=== PATIENT | female | born 1955 | race African-American/Black ===

== ENCOUNTER 2019-01-21 15:22 | Emergency (ER) | payer OTHER, MEDICAID ==
[~2019-01-21] VITALS: Ht 170.2 cm; Wt 136.1 kg
[2019-01-21 17:44] VITALS: BP 161/82
[2019-01-21] MEDS ORDERED: HYDR-3164 PO (18:28)
[2019-01-21] MEDS ORDERED: CEPH-264 PO (18:28)
--- NOTE | 2019-01-21 18:28 | PHYS DOC ---
Past Medical History Past Medical History: Diabetes-Type II, Hypertension Past Surgical History: Cholecystectomy, , Tonsillectomy Alcohol Use: None Drug Use: None Adult General Chief Complaint Chief Complaint: LACERATION/AVULSION HPI HPI Patient is a 63 year old female who presents with a laceration to her right thumb that occurred when she was slicing apples. She states that she needs a tetanus booster. She denies any other injury. Review of Systems Review of Systems Constitutional: Denies fever or chills [] Respiratory: Denies cough or shortness of breath [] Cardiovascular: No additional information not addressed in HPI [] GI: Denies abdominal pain, nausea, vomiting, bloody stools or diarrhea [] : Denies dysuria or hematuria [] Musculoskeletal: Denies back pain or joint pain [] Integument: See HPI Neurologic: Denies headache, focal weakness or sensory changes [] Endocrine: Denies polyuria or polydipsia [] All other systems were reviewed and found to be within normal limits, except as documented in this note. Current Medications Current Medications Current Medications Medications (Trade) Dose Ordered Sig/Alonzo Start Time Stop Time Status Last Admin Dose Admin Acetaminophen/ Hydrocodone Bitart (Lortab 5/325) 1 tab 1X ONCE 01/21/19 18:30 01/21/19 18:31 DC 01/21/19 18:33 1 TAB Diphtheria/ Tetanus/Acell Pertussis (Boostrix) 0.5 ml ONCE ONCE 01/21/19 18:30 01/21/19 18:31 DC 01/21/19 18:32 0.5 ML Allergies Allergies Allergies Coded Allergies Type Severity Reaction Last Updated Verified sulfamethoxazole Allergy Intermediate 01/21/19 Yes trimethoprim Allergy Intermediate 01/21/19 Yes Physical Exam Physical Exam Constitutional: Well developed, well nourished, no acute distress, non-toxic appearance. [] Cardiovascular:Heart rate regular rhythm, no murmur [] Lungs & Thorax: Bilateral breath sounds clear to auscultation [] Abdomen: Bowel sounds normal, soft, no tenderness, no masses, no pulsatile masses. [] Skin: 1 cm laceration to the base of the right thumb that is more of an avulsion, it is shallow with bleeding controlled. Back: No tenderness, no CVA tenderness. [] Extremities: No tenderness, no cyanosis, no clubbing, ROM intact, no edema. [] Neurologic: Alert and oriented X 3, normal motor function, normal sensory function, no focal deficits noted. [] Psychologic: Affect normal, judgement normal, mood normal. [] Current Patient Data Vital Signs EKG EKG [] Radiology/Procedures Radiology/Procedures [] Course & Med Decision Making Course & Med Decision Making Pertinent Labs and Imaging studies reviewed. (See chart for details) []The wound was cleaned and reinforced with steristrips. The patient was given Boostrix in the ED. Dragon Disclaimer Dragon Disclaimer This electronic medical record was generated, in whole or in part, using a voice recognition dictation system. Departure Departure Impression: Primary Impression: Laceration Additional Impression: Need for tetanus booster Disposition: HOME, SELF-CARE Condition: STABLE Referrals: ALFONSO LYNN MD (PCP) Patient Instructions: Fingertip Laceration, Sterile Tape Wound Closure Additional Instructions: Take the medication for pain as directed. Do not drive or operate heavy machinery while taking this medication. Follow-up with your primary care provider in one week if not improving. The Steri-Strips and glue will come off on its own over the next few days. Scripts Cephalexin (KEFLEX) 500 Mg Capsule 1 CAP PO TID for laceration, #30 CAP Prov: NONA PENALOZA APRN 01/21/19 Hydrocodone/Apap 5-325 (NORCO 5-325 TABLET) 1 Each Tablet 1 TAB PO PRN Q6HRS PRN for PAIN, #14 TAB 0 Refills Prov: NONA PENALOZA APRN 01/21/19 Problem Qualifiers NONA PENALOZA APRN Jan 21, 2019 18:28
[2019-01-21] MEDS ORDERED: HYDROcodone/APAP 5/325MG 1 TAB TABLET PO ONE (18:30)
[2019-01-21] MEDS ORDERED: DIPHTH,PERTUSS(ACELL),TET TOX 0.5 ML DISP.SYRIN. VAX IM ONE (18:30)
== END 2019-01-21 18:35 | disposition home or self-care (01) ==
LOC: ER 15:22
DX: S61.111A Laceration without foreign body of right thumb with damage to nail, initial encounter (principal); E11.9 Type 2 diabetes mellitus without complications; I10 Essential (primary) hypertension; Z90.49 Acquired absence of other specified parts of digestive tract; Z98.890 Other specified postprocedural states; Z90.89 Acquired absence of other organs; Z88.2 Allergy status to sulfonamides; Z88.1 Allergy status to other antibiotic agents; W26.8XXA Contact with other sharp object(s), not elsewhere classified, initial encounter; Y93.89 Activity, other specified; Y92.89 Other specified places as the place of occurrence of the external cause; Y99.8 Other external cause status
CPT/HCPCS: 90471; 90715; 99283

== ENCOUNTER → 2019-09-07 | Outpatient (CLI) | payer MEDICARE, MEDICAID ==
[~2019-09-07] MED LIST: CEPH-264 PO; GADOTERATE 7.5 MMOL/15ML VIAL. IVP ONE; HYDR-3164 PO
[2019-09-07 13:04] LABS: BASO # 0.1 x10^3/uL (0.0-0.2); BASO % 1 % (0-3); EOS # 0.2 x10^3/uL (0.0-0.7); EOS % 2 % (0-3); HEMATOCRIT 43.1 % (36.0-47.0); HEMOGLOBIN 14.3 g/dL (12.0-15.5); LYMPH # 3.4 x10^3/uL (1.0-4.8); LYMPH % 42 % (24-48); MEAN CORPUSCULAR HEMOGLOBIN 29 pg (25-35); MEAN CORPUSCULAR HGB CONC 33 g/dL (31-37); MEAN CORPUSCULAR VOLUME 87 fL (79-100); MONO # 0.4 x10^3/uL (0.0-1.1); MONO % 6 % (0-9); NEUT # 3.9 x10^3/uL (1.8-7.7); NEUT % 49 % (31-73); PLATELET COUNT 339 x10^3/uL (140-400); RED BLOOD COUNT 4.96 x10^6/uL (3.50-5.40); RED CELL DISTRIBUTION WIDTH 14.5 % (11.5-14.5)
[2019-09-07 13:24] LABS: ALBUMIN 3.9 g/dL (3.4-5.0); ALBUMIN/GLOBULIN RATIO 0.8 (1.0-1.7); CREATININE 1.2 mg/dL (0.6-1.0); GFR 55.3; POTASSIUM 4.2 mmol/L (3.5-5.1); TOTAL BILIRUBIN 0.4 mg/dL (0.2-1.0); TOTAL PROTEIN 8.7 g/dL (6.4-8.2)
[2019-09-07 13:43] LABS: FREE T4 1.14 ng/dL (0.76-1.46); THYROID STIM HORMONE (TSH) 2.101 uIU/mL (0.358-3.74)
--- NOTE | 2019-09-07 15:37 | RAD ---
LUMBAR SPINE WO/W CONTRAST History: Low back pain. Left leg radiculopathy. Technique: Multiplanar, multi sequential MR imaging was performed of the lumbar spine with and without contrast. Contrast: 30 mL Dotarem. Comparison: None Findings: Normal vertebral body height and alignment. No fracture. Conus terminates at the normal location. No evidence of nerve root clumping. No pathologic enhancement. L1-L2: No canal or neuroforaminal narrowing. L2-L3: No canal or neuroforaminal narrowing. Mild facet arthropathy. L3-L4: Small right foraminal annular fissure. No significant posterior disc bulge. No canal or neuroforaminal narrowing. Moderate facet arthropathy. L4-L5: Minimal posterior disc bulge. Moderate facet arthropathy. No canal or neuroforaminal narrowing. L5-S1: Moderate facet arthropathy. No canal or neuroforaminal narrowing. Poorly characterize bilateral renal lesions, likely cysts. Impression: 1. Moderate facet arthropathy. No significant canal or neuroforaminal narrowing. Electronically signed by: Petey Whittington DO (09/07/2019 3:35 PM) [facility]
--- NOTE | 2019-09-07 16:20 | RAD ---
CHEST PA LATERAL Clinical indications: Cough for 2 weeks. COMPARISON: October 06, 2018. Findings: No acute lung infiltrate or pleural effusion or pulmonary edema or lung mass or pneumothorax is seen. The heart size, pulmonary vasculature, mediastinum and both sawyer are unremarkable. The osseous structures appear intact. Impression: No acute radiographic abnormality is seen. Electronically signed by: Chance Zarate MD (09/07/2019 4:18 PM) [facility]
[2019-09-08 00:07] LABS: HEMOGLOBIN A1C 6.6 % (4.8-5.6)
[2019-09-08 01:11] LABS: CREAT RD UR 175.7 mg/dL (Not Estab.); MICRO CREAT RATIO 4.8 mg/g creat (0.0-30.0); MICROALB RD UR 8.5 ug/mL (Not Estab.)
== END | disposition home or self-care (01) ==
LOC: MRI 13:07
PROVIDERS: ATTEND Nurse Practitioner Family
DX: M46.87 Other specified inflammatory spondylopathies, lumbosacral region (principal); R05 Cough; E11.9 Type 2 diabetes mellitus without complications; M54.16 Radiculopathy, lumbar region; M48.062 Spinal stenosis, lumbar region with neurogenic claudication
CPT/HCPCS: 36415; 71046; 72158; 80053; 82043; 82570; 83036; 84439; 84443; 85025; A9575

== ENCOUNTER → 2019-09-11 | Outpatient (CLI) | payer MEDICARE, MEDICAID ==
[~2019-09-11] MED LIST changes: -GADOTERATE 7.5 MMOL/15ML VIAL. IVP ONE
--- NOTE | 2019-09-11 19:19 | RAD ---
DATE: 09/11/2019 EXAM: MAMMO CHUCK SCREENING BILATERAL HISTORY: Routine screening. COMPARISON: None. This exam is the baseline. This study was interpreted with the benefit of Computerized Aided Detection (CAD). Breast Density: SCATTERED The breast parenchyma shows scattered fibroglandular densities. Breast parenchyma level B. FINDINGS: No suspicious mass or calcification. No distortion. IMPRESSION: Unremarkable. BI-RADS CATEGORY: 1 NEGATIVE RECOMMENDED FOLLOW-UP: 12M 12 MONTH FOLLOW-UP PQRS compliance statement: Patient information was entered into a reminder system with a target due date for the next mammogram. Mammography is a sensitive method for finding small breast cancers, but it does not detect them all and is not a substitute for careful clinical examination. A negative mammogram does not negate a clinically suspicious finding and should not result in delay in biopsying a clinically suspicious abnormality. "Our facility is accredited by the [employer] Mammography Program."
== END | disposition home or self-care (01) ==
LOC: MAMMO 09:05
PROVIDERS: ATTEND Nurse Practitioner Family
DX: Z12.31 Encounter for screening mammogram for malignant neoplasm of breast (principal)
CPT/HCPCS: 77063; 77067

== ENCOUNTER → 2019-09-14 | Outpatient (CLI) | payer MEDICARE, MEDICAID ==
[~2019-09-14] MED LIST changes: +ACET500T68 PO; +ASPI81TA50 PO; +ATOR10TA60 PO; +BUPIVACAINE MPF 0.25% 10 ML VIAL. ONE; +METF10007 PO; +MONT10TA49 PO; +OLME1TAB21 PO; +PANT40TA77 PO; +VENTOLIN HFA18 GM INH; +methylPREDNISolone ACETATE 40 MG/ML VIAL. ONE
--- NOTE | 2019-09-14 19:05 | PAIN ---
DATE OF SERVICE: 09/14/2019 INITIAL CONSULTATION FOR PAIN CLINIC CHIEF COMPLAINT: Low back and left lower extremity pain. HISTORY OF PRESENT ILLNESS: This is a 63-year-old female who presents with history of pain in the low back, left lower extremity for about 7 years, worse over the past few months, worse with activity, standing, walking, changing positions, also with sitting. The patient reports her left leg will go numb with walking and sitting down and she sometimes feels a popping sensation in the left hip, which caused the pain to increase and shooting down her leg, mostly in the posterior calf. The patient reports it is constant, sharp, stabbing, throbbing, shooting, intermittent in intensity with tingling, numbness, changes during the day, worse with activity, also worse with sitting. The patient reports it can awaken her from sleep as well generally once or twice at night, it does not affect her bowel or bladder control, but does affect her ability to walk significantly. The patient has not had any formal recent physical therapy, had some in the past, also had some epidural injections in the past about 7 years ago, which were not helpful and caused migraine headaches. The patient reports she has tried meloxicam, tramadol, hydrocodone, also some toqz-mgk-[id number] pain patches, none of which have really significantly decreased the pain. The patient rates her disability rating from 0 to 10, 10 being the worst, it is a 7 with family home responsibilities, 8 with recreation and social activity, and 9 with occupation and sexual behavior, 6 with self-care and life support activities. The patient did have MRI scan of the lumbar spine showing only some moderate facet arthropathy, small right foraminal annular fissure at L3-L4 with no significant posterior disk bulge. L4-L5 shows moderate facet arthropathy with no canal or neural foraminal narrowing and also facet arthropathy at L5-S1. The patient reports significant fatigability in the left leg, pain comes with sitting as well as with standing and walking. PAST MEDICAL HISTORY: Significant for diabetes type 2, shortness of breath, sleep apnea, hypertension, hyperlipidemia, diarrhea, gastroesophageal reflux, arthritis. PREVIOUS SURGERY: Include tonsillectomy, cholecystectomy and previous . CURRENT MEDICATIONS: Include metformin, pantoprazole, daily baby aspirin, extra strength Tylenol, ibuprofen and an allergy injections that she gets weekly during spring and fall seasons. FAMILY HISTORY: Significant for high blood pressure. SOCIAL HISTORY: The patient does not smoke. Drinks alcohol about 1 glass of wine a week, does not use any illegal, illicit or recreational drugs. She is single, lives locally in [place], [place], is currently staying with her daughter who lives near the [facility] [address] REVIEW OF SYSTEMS: The patient's review of systems is positive for those items mentioned in the history of present illness. It is complete, full and well documented on the patient's chart. PHYSICAL EXAMINATION: VITAL SIGNS: The patient's blood pressure is 141/74, pulse 76, respirations 16, temperature is 97.5 degrees Fahrenheit, height is 5 feet 7 inches, weight 323 pounds. GENERAL: The patient is awake, alert, oriented, appropriate, very pleasant demeanor. HEENT: Shows normocephalic, atraumatic. Extraocular movements are intact and symmetrical. Oral cavity: Mucous membranes moist and pink. Dentition is intact. NECK: Shows anterior throat supple without palpable lymphadenopathy noted. Swallow reflex symmetrical. CHEST: Shows normal on inspection. Breath sounds clear to auscultation bilaterally. HEART: Shows S1, S2 clear. No murmurs auscultated. ABDOMEN: Soft, obese, nontender, nondistended. No palpable organomegaly is noted. No rebound or guarding demonstrated. BACK: Shows spine grossly in the midline. Normal appearing thoracic kyphosis and lumbar lordotic curvature. Lumbar paraspinous muscle shows symmetrical on inspection; with palpation shows some moderate tenderness diffusely bilaterally, but only diffusely without significant radiation. EXTREMITIES: The patient's lower extremities show deep tendon reflexes at 2+ in the patellar, 1+ tendo-calcaneus tendons. Motor exam is strong with 5/5 dorsiflexion, extension, quadriceps and hamstring flexion and symmetrical. Peripheral pulses are 1+ in posterior tibia. No peripheral edema is noted. Lower extremities are warm and dry to touch, equal in color and appearance. The patient's straight leg raise noted to be negative for reproduction of radicular symptoms bilaterally with examination of the patient's left hip shows significant tenderness over the inferior medial aspect near the ischial tuberosity with very firm musculature in this region but very tender and reproducing of some radiating pain into the posterior thigh as well as the lateral thigh with palpation in this region. Right side shows no such tenderness and no radiation of pain with palpation. Gaenslen's and Jonah's maneuvers are grossly negative bilaterally as well. SKIN: Shows warm and dry, good turgor. No edema. No sores, rashes or bruising throughout. IMPRESSION: 1. This is a 63-year-old female with approximately 7-year history of low back and left lower extremity pain. 2. MRI scan of lumbar spine as noted. 3. Diabetes type 2. 4. Arthritis. 5. Obesity. 6. Hypertension. PLAN: Options were discussed with the patient including conservative medical management, physical therapies, interventional techniques. She elected to proceed with interventional techniques. She went through modalities without significant improvement in the past. We discussed a left piriformis injection using description as well as anatomical models to describe the procedure. Risks were then discussed including, but not limited to bleeding, infection, possibility of intravascular injection sequelae, spread of local anesthetic and numbness, side effects of steroid medication, exposure to fluoroscopy and poor results regarding pain control. The patient understands and wished to proceed. The patient will return to clinic in approximately 2 weeks for followup. She was counseled on return appointment, activity level and side effects to be aware of. DIAGNOSIS: Left piriformis syndrome. PROCEDURE: Left piriformis injection using C-arm fluoroscopic guidance under sterile prep and drape using local anesthetic. MEDICATION INJECTED: Received a total of 5 mL of 0.25% bupivacaine and total of 40 mg Depo-Medrol after negative aspiration and 1.5 mL of contrast. CONDITION AT DISCHARGE: Stable. The patient tolerated procedure well, had no complications. ENRIQUE RUIZ MD DR: KAYLEY/juan alberto JOB#: [id number] / [id number] BRIANNA Sommers
== END ==
LOC: PNCL 09:58
PROVIDERS: ATTEND Anesthesiology
DX: G57.02 Lesion of sciatic nerve, left lower limb (principal); M79.18 Myalgia, other site; E11.9 Type 2 diabetes mellitus without complications; I10 Essential (primary) hypertension; Z79.84 Long term (current) use of oral hypoglycemic drugs; E66.9 Obesity, unspecified; Z87.39 Personal history of other diseases of the musculoskeletal system and connective tissue; E78.5 Hyperlipidemia, unspecified; G47.30 Sleep apnea, unspecified; K21.9 Gastro-esophageal reflux disease without esophagitis; Z90.49 Acquired absence of other specified parts of digestive tract; Z72.89 Other problems related to lifestyle
CPT/HCPCS: 20552; 77002; J1030; J3490

== ENCOUNTER → 2019-09-19 | Outpatient (CLI) | payer MEDICARE, MEDICAID ==
[~2019-09-19] MED LIST changes: -BUPIVACAINE MPF 0.25% 10 ML VIAL. ONE; -methylPREDNISolone ACETATE 40 MG/ML VIAL. ONE
--- NOTE | 2019-09-19 09:40 | CARD ---
MR#: [id number] Date of Study: 09/19/2019 Ordering Physician: REMBERTO HOLLAND, Referring Physician: Stefania DAILEY: Gerda Nugent APPROVED REPORT EXAM: Two-dimensional and M-mode echocardiogram with Doppler and color Doppler. Other Information Quality : AverageHR: 79bpm INDICATION Dyspnea on exertion 2D DIMENSIONS RVDd2.9 (2.9-3.5cm)Left Atrium(2D)4.0 (1.6-4.0cm) IVSd1.2 (0.7-1.1cm)Aortic Root(2D)2.9 (2.0-3.7cm) LVDd5.1 (3.9-5.9cm)LVOT Diameter2.1 (1.8-2.4cm) PWd1.0 (0.7-1.1cm)LVDs3.6 (2.5-4.0cm) FS (%) 29.2 %SV68.2 ml LVEF(%)55.7 (>50%) Aortic Valve AoV Peak Eder.125.6cm/sAoV VTI24.6cm AO Peak GR.6.3mmHgLVOT Peak Eder.113.8cm/s LVOT VTI 20.03cmAO Mean GR.4mmHg ALBERTO (VMAX)2.79cf0RYO (VTI)2.87cm2 Mitral Valve MV E Zjsunstu00.0cm/sMV DECEL [id number] MV A Csvgjgjy97.9cm/sMV VUX69el E/A Ratio0.6MVA (PHT)2.67cm2 TDI E/Lateral E'5.4E/Medial E'10.0 Pulmonary Valve PV Peak Kbgkbfso97.3cm/sPV Peak Grad.3mmHg Tricuspid Valve RAP [id number] Pulmonary Vein S1 Rjnjsjaw42.4cm/sD2 Ngxslfby18.2cm/s PVa [id number] LEFT VENTRICLE The left ventricle is normal size. There is normal left ventricular wall thickness. The left ventricu lar systolic function is normal and the ejection fraction is within normal range. The Ejection Fracti on is 55-60%. There is normal LV segmental wall motion. Transmitral Doppler flow pattern is Grade I-a bnormal relaxation pattern. RIGHT VENTRICLE The right ventricle is normal size. There is normal right ventricular wall thickness. The right ventr icular systolic function is normal. ATRIA The left atrium size is normal. The right atrium size is normal. The interatrial septum is intact wit h no evidence for an atrial septal defect or patent foramen ovale as noted on 2-D or Doppler imaging. AORTIC VALVE The aortic valve is not well visualized. Doppler and Color Flow revealed no significant aortic regurg itation. There is no significant aortic valvular stenosis. MITRAL VALVE The mitral valve is normal in structure and function. There is no evidence of mitral valve prolapse. There is no mitral valve stenosis. Doppler and Color-flow revealed trace mitral regurgitation. TRICUSPID VALVE The tricuspid valve is normal in structure and function. Doppler and Color Flow revealed trace tricus pid regurgitation. There is no tricuspid valve stenosis. PULMONIC VALVE The pulmonic valve is not well visualized. Doppler and Color Flow revealed no pulmonic valvular regur gitation. GREAT VESSELS The aortic root is normal in size. The ascending aorta is normal in size. The IVC was not visualized. PERICARDIAL EFFUSION There is no pleural effusion. There is no evidence of significant pericardial effusion. Critical Notification Critical Value: No <Conclusion> The left ventricle is normal size. The left ventricular systolic function is normal and the ejection fraction is within normal range. The Ejection Fraction is 55-60%. There is no significant aortic valvular stenosis. Doppler and Color Flow revealed no significant aortic regurgitation. Doppler and Color-flow revealed trace mitral regurgitation. Doppler and Color Flow revealed trace tricuspid regurgitation. Signed by : Guru Cristina MD Electronically Approved : 09/19/2019 09:39:49
== END | disposition home or self-care (01) ==
LOC: ECHO 07:58
PROVIDERS: ATTEND Internal Medicine Cardiovascular Disease
DX: R06.09 Other forms of dyspnea (principal); I34.0 Nonrheumatic mitral (valve) insufficiency; I36.1 Nonrheumatic tricuspid (valve) insufficiency
CPT/HCPCS: 93017; 93306; 96376

== ENCOUNTER → 2020-10-27 | Outpatient (CLI) | payer MEDICARE, MEDICAID ==
--- NOTE | 2020-10-27 13:04 | CARD ---
MR#: [id number] Date of Study: 10/27/2020 Ordering Physician: REMBERTO TORRES, Referring Physician: REMBERTO TORRES, Tech: Simi Uriostegui APPROVED REPORT EXAM: Two-dimensional and M-mode echocardiogram with Doppler and color Doppler. Other Information Quality : AverageHR: 70bpm Technically limited study due to Obesity INDICATION Hypertension/HCVD RISK FACTORS Hyperlipidemia Diabetes 2D DIMENSIONS RVDd2.7 (2.9-3.5cm)Left Atrium(2D)3.3 (1.6-4.0cm) IVSd1.0 (0.7-1.1cm)Aortic Root(2D)3.1 (2.0-3.7cm) LVDd5.0 (3.9-5.9cm)LVOT Diameter2.1 (1.8-2.4cm) PWd1.0 (0.7-1.1cm)LVDs3.5 (2.5-4.0cm) FS (%) 29.4 %SV65.5 ml LVEF(%)56.2 (>50%) Aortic Valve AoV Peak Eder.124.8cm/sAoV VTI21.9cm AO Peak GR.6.2mmHgLVOT Peak Eder.92.9cm/s LVOT VTI 17.16cmAO Mean GR.4mmHg ALBERTO (VMAX)1.11lo8FVM (VTI)2.61cm2 Mitral Valve MV E Meunsceu12.4cm/sMV DECEL [id number] MV A Rztezqwu39.1cm/sMV FMD73wd E/A Ratio0.6MVA (PHT)7.18cm2 TDI E/Lateral E'3.4E/Medial E'6.6 Pulmonary Valve PV Peak Tpapbuqa45.1cm/sPV Peak Grad.4mmHg Tricuspid Valve TR P. Bpppkcij451la/sRAP FJGULOYQ2zdVt TR Peak Gr.27mdLiLXHD48hxFf Pulmonary Vein S1 Babstsdr24.8cm/sD2 Mmyqcakl27.2cm/s PVa [id number] LEFT VENTRICLE The left ventricle is normal size. There is normal left ventricular wall thickness. The left ventricu lar systolic function is normal. The Ejection Fraction is 55-60%. There is normal LV segmental wall m otion. Transmitral Doppler flow pattern is Grade I-abnormal relaxation pattern. RIGHT VENTRICLE The right ventricle is normal size. There is normal right ventricular wall thickness. The right ventr icular systolic function is normal. ATRIA The left atrium size is normal. The right atrium size is normal. The interatrial septum is intact wit h no evidence for an atrial septal defect or patent foramen ovale as noted on 2-D or Doppler imaging. AORTIC VALVE The aortic valve is thickened but opens well. Doppler and Color Flow revealed no significant aortic r egurgitation. There is no significant aortic valvular stenosis. Calculated aortic valve area is 2.43 cm2 with maximum pressure gradient of 8 mmHg and mean pressure gradient of 4 mmHg. MITRAL VALVE The mitral valve is normal in structure and function. There is no evidence of mitral valve prolapse. There is no mitral valve stenosis. Doppler and Color-flow revealed trace mitral regurgitation. TRICUSPID VALVE The tricuspid valve is normal in structure and function. Doppler and Color Flow revealed trace tricus pid regurgitation with an estimated PAP of 30 mmHg. There is no tricuspid valve stenosis. PULMONIC VALVE The pulmonic valve is not well visualized. Doppler and Color Flow revealed trace pulmonic valvular re gurgitation. GREAT VESSELS The aortic root is normal in size. The ascending aorta is normal in size. The IVC was not visualized. PERICARDIAL EFFUSION There is no evidence of significant pericardial effusion. Critical Notification Critical Value: No <Conclusion> The left ventricular systolic function is normal. The Ejection Fraction is 55-60%. There is normal LV segmental wall motion. Transmitral Doppler flow pattern is Grade I-abnormal relaxation pattern. Trace mitral regurgitation. Trace tricuspid regurgitation with an estimated PAP of 30 mmHg. There is no evidence of significant pericardial effusion. Signed by : Remberto Torres, Electronically Approved : 10/27/2020 13:04:20
== END ==
LOC: ECHO 08:55
PROVIDERS: ATTEND Internal Medicine Cardiovascular Disease
DX: I10 Essential (primary) hypertension (principal)
CPT/HCPCS: 93306